=== PATIENT | male | born 2000 | race Caucasian/White ===

== ENCOUNTER 2020-05-07 21:26 | Observation (INO) | payer OTHER ==
[~2020-05-07] VITALS: Ht 170.2 cm; Wt 68.1 kg
[2020-05-07] MEDS ORDERED: BACT800T5 PO ×2 (21:38→23:57)
[2020-05-07] MEDS ORDERED: KETOROLAC 60MG 2ML VIAL IM ONE (22:30)
[2020-05-07] MEDS ORDERED: NS 1,000 ML IV ONE (22:45)
[2020-05-07] MEDS ORDERED: KETOROLAC 30 MG/ML 1ML VIAL IV ONE (22:45)
[2020-05-07] MEDS ORDERED: PIPERACILLIN/TAZOBACTAM SOD 4.5 GM in D5W MINI-BAG PLUS 50 ML IV ONE (22:45)
[2020-05-07 23:03] LABS: BASO % 0.5 % (0.0-1.0); EOS # 0.1 10^3/uL (0.0-0.5); EOS % 0.8 % (0.0-3.0); HEMATOCRIT 43.5 % (42.0-52.0); HEMOGLOBIN 14.3 g/dl (13.5-17.5); LYMPH % 11.6 % (24.0-44.0); MEAN CORPUSCULAR HEMOGLOBIN 30.2 pg (27.0-33.0); MEAN CORPUSCULAR HGB CONC 32.9 g/dl (32.0-36.5); MONO # 0.8 10^3/uL (0.0-0.8); MONO % 9.3 % (0.0-5.0); NEUTROPHILS # 6.6 10^3/uL (1.5-8.5); NEUTROPHILS % 77.2 % (36.0-66.0); PLATELET COUNT, AUTOMATED 235 10^3/uL (150-450); RED BLOOD COUNT 4.73 10^6/uL (4.30-6.10); WHITE BLOOD COUNT 8.6 10^3/uL (4.0-10.0)
--- NOTE | 2020-05-07 23:53 | REPVR ---
PROCEDURE INFORMATION: Exam: CT Right Lower Extremity Without Contrast; Thigh Exam date and time: 05/07/2020 10:44 PM Age: 19 years old Clinical indication: Edema; Yes, it is localized; Prior surgery; Surgery date: Post-operative (0-2 days); Surgery type: I & d upper right thigh for ingrownhair; Additional info: Possible abscess TECHNIQUE: Imaging protocol: CT of the Right lower extremity without contrast was performed. Exam focused on the thigh. Axial, coronal and sagittal reformatted images were created and reviewed. Radiation optimization: All CT scans at this facility use at least one of these dose optimization techniques: automated exposure control; mA and/or kV adjustment per patient size (includes targeted exams where dose is matched to clinical indication); or iterative reconstruction. COMPARISON: No relevant prior studies available. FINDINGS: Bones/joints: No CT evidence of acute fracture or dislocation. Alignment anatomic. Hip joint space preserved. No erosive or destructive changes. No lytic or blastic lesion. No significant effusion. Soft tissues: Mild subcutaneous edema along the anteromedial aspect of the proximal to mid thigh. Small soft tissue defect overlying the anteromedial aspect of the mid quadriceps musculature. Deep intramuscular fat planes grossly clear. No convincing organized collection or soft tissue gas. No soft tissue mass. IMPRESSION: 1. Limited noncontrast examination. 2. Mild subcutaneous edema along the anteromedial aspect of the proximal to mid thigh, compatible with cellulitis. No convincing organized collection to suggest abscess. 3. Additional findings, as above. Electronically signed by: Ever Cornejo On 05/07/2020 23:53:45 PM
[2020-05-07] MEDS ORDERED: IBUP-1720 PO (23:54)
[2020-05-07] MEDS ORDERED: OMEP1CAP73 PO (23:54)
[2020-05-08] MEDS ORDERED: VANCOMYCIN HCL 1,000 MG in IV FLUID PLACE HOLDER 1 EA IV SCH (00:15)
[2020-05-08] MEDS ORDERED: ONDANSETRON 4MG/2ML VIAL IV PRN (00:30)
[2020-05-08] MEDS ORDERED: KETOROLAC 30 MG/ML 1ML VIAL IV PRN (00:30)
--- NOTE | 2020-05-08 01:39 | HPEPDOC ---
[facility] Medical History & Physical Date of Admission May 08, 2020 Date of Service: May 08, 2020 Attending Physician: WILBER CAMARGO MD History and Physical CHIEF COMPLAINT: Right leg redness HISTORY OF PRESENT ILLNESS: Patient is a 19-year-old active male with no severe past medical history presented to the [facility] emergency department with complaint of increasing redness in his right leg. Patient states that earlier in the week he had developed an area on his right thigh that looks like an infected hair follicle. He stated that he continued with physical training and noticed that the area worsened and developed an abscess. He was seen by [facility] medical staff today and had an I&D of the abscess. He stated that he was told there is purulence. He was given Bactrim. He states that he took 1 pill of Bactrim. However, throughout the day the redness increased and spread down his thigh and onto his leg. Currently he states that his leg is warm and tender. He denies any fevers or chills. In the emergency department the patient was vitally stable. He was afebrile. White blood cell count was not elevated. He was not tachycardic. His ear. The right extremity was taken was demonstrate a mild CPK is edema along the anterior medial aspect of the proximal to mid thigh consistent with cellulitis but no areas of collection or abscess were identified. Patient was given a dose of Zosyn in the ED. Hospitalist service was consulted and the patient was admitted for further evaluation management PAST MEDICAL HISTORY: 1., GERD PAST SURGICAL HISTORY: 1. , Tonsillectomy SOCIAL HISTORY: Patient is a active male. [place] States that he uses dip denies smoking or bleeding. Denies IV or illicit drug use. Admits to occasional alcohol use FAMILY HISTORY: Patient states his mother, father are alive and well. He denies any known medical history. ALLERGIES: Please see below. REVIEW OF SYSTEMS: CONSTITUTIONAL: Denies fevers, chills. Denies unintentional weight loss, weight gain. Denies night sweats HEENT: Denies change in vision, headache. Denies dysphagia, odynophagia. CARDIOVASCULAR: Denies chest pain, palpitations or feelings of the heart racing. RESPIRATORY: Shortness of breath. denies cough or wheezing GASTROINTESTINAL: Denies abdominal pain. Denies nausea, vomiting, diarrhea or constipation.. GENITOURINARY: Denies dysuria, increased frequency. SKIN:. Admits to a right leg abscess that was drained. Admits to redness that has spread from his medial thigh to his leg. MUSCULOSKELETAL: Denies any muscle weakness or pain. NEUROLOGICAL:. Denies any changes in gait or speech from baseline. PSYCHIATRIC:. Denies any depression or anxiety. ENDOCRINE:. Denies heat intolerance or cold intolerance. Denies history of diabetes. HEMATOLOGIC/LYMPHATIC:. Denies easy bruising or bleeding. denies history of DVT or pulmonary embolism.. HOME MEDICATIONS: Please see below. PHYSICAL EXAMINATION: VITAL SIGNS: Temperature 98.7, pulse 75, respiratory rate 18, blood pressure 118/55, pulse oximetry, 98 % on room air. GENERAL APPEARANCE: Patient is awake, alert, oriented. He does not appear to be in acute distress. He is lying in stretcher comfortably. HEENT: Atraumatic normocephalic. Eyes are nonicteric. Trachea is midline. Mucous membranes are pink and moist. CARDIOVASCULAR:. Normal S1, S2, regular rate and rhythm. No clicks rubs or murmurs. LUNGS:. Clear vesicular breath sounds bilaterally. Good respiratory effort. No wheezes rhonchi or rales. ABDOMEN:. Soft nondistended, nontender. Normoactive bowel sounds throughout. EXTREMITIES: No edema. There is an area of induration on the patient's right anterior medial thigh there is a small incision over the indurated area with some draining purulence. There is surrounding erythema extending from the anterior medial thigh down the posterior leg on the right. There is no edema in the lower extremities. Are full equal pulses bilaterally NEUROLOGICAL:. No focal neurological deficits. PSYCHIATRIC:. Mood and affect appear appropriate LABORATORY DATA: See below. IMAGING: PROCEDURE INFORMATION: Exam: CT Right Lower Extremity Without Contrast; Thigh Exam date and time: 05/07/2020 10:44 PM Age: 19 years old Clinical indication: Edema; Yes, it is localized; Prior surgery; Surgery date: Post-operative (0-2 days); Surgery type: I & d upper right thigh for ingrownhair; Additional info: Possible abscess TECHNIQUE: Imaging protocol: CT of the Right lower extremity without contrast was performed. Exam focused on the thigh. Axial, coronal and sagittal reformatted images were created and reviewed. Radiation optimization: All CT scans at this facility use at least one of these dose optimization techniques: automated exposure control; mA and/or kV adjustment per patient size (includes targeted exams where dose is matched to clinical indication); or iterative reconstruction. COMPARISON: No relevant prior studies available. FINDINGS: Bones/joints: No CT evidence of acute fracture or dislocation. Alignment anatomic. Hip joint space preserved. No erosive or destructive changes. No lytic or blastic lesion. No significant effusion. Soft tissues: Mild subcutaneous edema along the anteromedial aspect of the proximal to mid thigh. Small soft tissue defect overlying the anteromedial aspect of the mid quadriceps musculature. Deep intramuscular fat planes grossly clear. No convincing organized collection or soft tissue gas. No soft tissue mass. IMPRESSION: 1. Limited noncontrast examination. 2. Mild subcutaneous edema along the anteromedial aspect of the proximal to mid thigh, compatible with cellulitis. No convincing organized collection to suggest abscess. 3. Additional findings, as above. Electronically signed by: Ever Cornejo On 05/07/2020 23:53:45 PM MICROBIOLOGY: Please see below. ASSESSMENT: Patient is a 19-year-old active male who presented to the [facility] emergency department for worsening cellulitis after having an incision and drainage on [facility]. PLAN: 1. Right Leg Furuncle/Cellulitis. -Patient has a superficial cellulitis of the right thigh. Likely secondary to a furuncle that formed. He stated he had an inflamed hair follicle and continued with physical training which likely caused the infection to worsen and result in abscess formation. He had this drained through [facility]. He actually only took 1 dose of Bactrim before he presented to the emergency department and therefore does not technically fail outpatient therapy. -CRP elevated . Will trend as currently necessary. [facility] and Zosyn. Will obtain MRSA screen. Cultures were taken at [facility]. If patient's MRSA screen is negative. Can de- escalate from vancomycin. CT imaging did not demonstrate any collection or abscess. -Plan to continue IV vancomycin and Zosyn today. Patient to be reevaluated in the morning. He can likely be discharged on oral antibiotics such as doxycycline for Keflex -Will give Toradol for pain 2. . Gastroesophageal reflux disease -Continue home Prilosec 3. DVT prophylaxis -Lovenox 40 mg daily Vital Signs Vital Signs Date Time Temp Pulse Resp B/P (MAP) Pulse Ox O2 Delivery O2 Flow Rate FiO2 05/07/20 23:48 98.7 75 18 118/55 (76) 98 Room Air Laboratory Data Labs 24H Laboratory Tests 2 05/07/20 22:53: Immature Granulocyte % (Auto) 0.6, Neutrophils (%) (Auto) 77.2H, Lymphocytes (%) (Auto) 11.6L, Monocytes (%) (Auto) 9.3H, Eosinophils (%) (Auto) 0.8, Basophils (%) (Auto) 0.5, Neutrophils # (Auto) 6.6, Lymphocytes # (Auto) 1.0L, Monocytes # (Auto) 0.8, Eosinophils # (Auto) 0.1, Basophils # (Auto) 0.0, Nucleated Red Blood Cells % (auto) 0.0, Lactic Acid Level 0.7, C-Reactive Protein, Quantitative 5.13H CBC/BMP Laboratory Tests 05/07/20 22:53 Microbiology Microbiology 05/07/20 Blood Culture, Received Pending 05/07/20 Blood Culture, Received Pending Home Medications Scheduled Omeprazole (Omeprazole) 20 Mg Capsule.dr, 20 MG PO DAILY Sulfamethoxazole/Trimethoprim (Bactrim Ds Tablet) 1 Each Tablet, 1 TAB PO BID STARTED 05/07/20: PATIENT ONLY TOOK ONE DOSE. Scheduled PRN Ibuprofen (Ibuprofen) 200 Mg Tablet, 400 MG PO Q6H PRN for PAIN Allergies Coded Allergies: No Known Allergies (Unverified , 05/07/20) ATTENDING NOTE I have personally evaluated and examined the patient. Discussed with resident/student regarding plan of care and agree with the above assessment and plan. A-FIB/CHADSVASC A-FIB History Current/History of A-Fib/PAF?: No MARTIN HUERTA DO May 08, 2020 01:39 WILBER CAMARGO MD May 08, 2020 06:59
[2020-05-08] MEDS ORDERED: VANCOMYCIN HCL 750 MG, VIAL MATE ADAPTER 1 EACH in D5W 250 ML IV ONE ×2 (02:00→03:00)
[2020-05-08 02:09] LABS: RSV AMPLIFICATION NEGATIVE (NEGATIVE)
--- OUTSIDE RECORDS SUMMARY | 2020-05-08 02:09 | CCD ---
Author Author [facility] Address Unknown Phone Unavailable Support Name Relationship Address Phone [facility] Next Of Kin [address] [place] [address] Unavailable LIAM JOHN Next Of Kin [address] [place], [place] [id number] Re-disclosure Warning The records that you are about to access may contain information from federally-assisted alcohol or drug abuse programs. If such information is present, then the following federally mandated warning applies: This information has been disclosed to you from records protected by federal confidentiality rules (42 CFR part 2). The federal rules prohibit you from making any further disclosure of this information unless further disclosure is expressly permitted by the written consent of the person to whom it pertains or as otherwise permitted by 42 CFR part 2. A general authorization for the release of medical or other information is NOT sufficient for this purpose. The Federal rules restrict any use of the information to criminally investigate or prosecute any alcohol or drug abuse patient.The records that you are about to access may contain highly sensitive health information, the redisclosure of which is protected by Article 27-F of the [facility] Public Health law. If you continue you may have access to information: Regarding HIV / AIDS; Provided by facilities licensed or operated by the [facility] Office of Mental Health; or Provided by the [facility] Office for People With Developmental Disabilities. If such information is present, then the following [facility] mandated warning applies: This information has been disclosed to you from confidential records which are protected by state law. State law prohibits you from making any further disclosure of this information without the specific written consent of the person to whom it pertains, or as otherwise permitted by law. Any unauthorized further disclosure in violation of state law may result in a fine or assisted sentence or both. A general authorization for the release of medical or other information is NOT sufficient authorization for further disc losure. Insurance Providers Payer name Policy type / Coverage type Policy ID Covered green party ID Covered green party's relationship to gomez Policy Gomez Plan Information [facility] [employer] [id number]
[2020-05-08] MEDS: PIPERACILLIN/TAZOBACTAM SOD 3.375 GM in D5W MINI-BAG PLUS 50 ML IV SCH ×4 (05:14→23:09)
[2020-05-08 06:00] LABS: BLOOD UREA NITROGEN 10 MG/DL (7-18); CALCIUM LEVEL 8.1 MG/DL (8.5-10.1); CARBON DIOXIDE LEVEL 29 MEQ/L (21-32); CHLORIDE LEVEL 105 MEQ/L (98-107); CREATININE FOR GFR 1.52 MG/DL (0.70-1.30); GLUCOSE, FASTING 107 MG/DL (70-100); POTASSIUM SERUM 3.9 MEQ/L (3.5-5.1); SODIUM LEVEL 139 MEQ/L (136-145)
[2020-05-08] MEDS ORDERED: NS 1,000 ML IV ONE (08:30)
[2020-05-08] MEDS: ENOXAPARIN 40MG/0.4ML SYRINGE (J1650 PER 10MG) SC SCH (09:12)
[2020-05-08] MEDS: OMEPRAZOLE 20 MG CAP PO SCH (09:12)
[2020-05-08] MEDS: ACETAMINOPHEN TAB 650MG DOSE (2X325MG) PO PRN ×2 (09:47→18:48)
[2020-05-08 13:30] VITALS: BP 115/67
[2020-05-08] MEDS: VANCOMYCIN HCL 750 MG, VIAL MATE ADAPTER 1 EACH in D5W 250 ML IV SCH (14:01)
[2020-05-08 14:32] LABS: BLOOD UREA NITROGEN 10 MG/DL (7-18); CARBON DIOXIDE LEVEL 27 MEQ/L (21-32); CHLORIDE LEVEL 111 MEQ/L (98-107); GLUCOSE, FASTING 89 MG/DL (70-100); POTASSIUM SERUM 4.3 MEQ/L (3.5-5.1); SODIUM LEVEL 144 MEQ/L (136-145)
[2020-05-08] MEDS: VANCOMYCIN HCL 500 MG in D5W MINI-BAG PLUS 100 ML IV SCH (15:10)
[2020-05-08 22:00] VITALS: BP 125/70
[2020-05-09] MEDS: ACETAMINOPHEN TAB 650MG DOSE (2X325MG) PO PRN ×2 (00:23→05:18)
[2020-05-09] MEDS: VANCOMYCIN HCL 750 MG, VIAL MATE ADAPTER 1 EACH in D5W 250 ML IV SCH (00:24)
[2020-05-09] MEDS: VANCOMYCIN HCL 500 MG in D5W MINI-BAG PLUS 100 ML IV SCH (01:34)
[2020-05-09] MEDS: PIPERACILLIN/TAZOBACTAM SOD 3.375 GM in D5W MINI-BAG PLUS 50 ML IV SCH (05:17)
[2020-05-09 06:00] VITALS: BP 102/56
[2020-05-09 06:33] LABS: HEMATOCRIT 37.8 % (42.0-52.0); MEAN CORPUSCULAR HEMOGLOBIN 30.1 pg (27.0-33.0); MEAN CORPUSCULAR HGB CONC 32.5 g/dl (32.0-36.5); MEAN CORPUSCULAR VOLUME 92.6 fl (80.0-96.0); PLATELET COUNT, AUTOMATED 187 10^3/uL (150-450); RED BLOOD COUNT 4.08 10^6/uL (4.30-6.10); WHITE BLOOD COUNT 4.6 10^3/uL (4.0-10.0)
[2020-05-09 06:40] LABS: HEMOGLOBIN 12.3 g/dl (13.5-17.5)
[2020-05-09 06:55] LABS: BLOOD UREA NITROGEN 6 MG/DL (7-18); CALCIUM LEVEL 8.4 MG/DL (8.5-10.1); CARBON DIOXIDE LEVEL 25 MEQ/L (21-32); CHLORIDE LEVEL 111 MEQ/L (98-107); GLUCOSE, FASTING 95 MG/DL (70-100); SODIUM LEVEL 141 MEQ/L (136-145)
[2020-05-09] MEDS: OMEPRAZOLE 20 MG CAP PO SCH (09:21)
[2020-05-09] MEDS: ENOXAPARIN 40MG/0.4ML SYRINGE (J1650 PER 10MG) SC SCH (09:22)
[2020-05-09] MEDS ORDERED: NS 1,000 ML IV ONE (09:30)
[2020-05-09] MEDS ORDERED: KETOROLAC 30 MG/ML 1ML VIAL IV ONE (09:30)
[2020-05-09] MEDS ORDERED: NORCO, ANEXSIA 5/325MG TABLET (HYDROcodone/ACETAMINOPHEN) PO PRN (09:30)
[2020-05-09] MEDS ORDERED: MORPHINE 4 MG/ML 1ML VIAL/SYRINGE (J2270) IV ONE (09:30)
[2020-05-09] MEDS: ceFAZolin SOD 2 GM in IV 1 EA IV SCH ×2 (10:19→17:05)
--- NOTE | 2020-05-09 11:11 | IPNPDOC ---
Date Seen The patient was seen on 05/09/20. Progress Note SUBJECTIVE: MAXIMUM TEMPERATURE of 100.9. No complaints of chills, 7/10 pain in the right anterior thigh, worse with movement OBJECTIVE PHYSICAL EXAMINATION: VITAL SIGNS: Please see below. GENERAL APPEARANCE: No distress, regular, oriented 3 HEENT: Moist mucous membranes. No cervical lymphadenopathy, thyromegaly CARDIOVASCULAR:. Normal S1, S2, regular rate and rhythm. LUNGS:. Here entry is equal bilaterally. Clear to auscultation No wheezes rhonchi or rales. ABDOMEN:. Soft nondistended, nontender. Normoactive bowel sounds throughout. EXTREMITIES: No edema. 1-1/2 cm indurated area of erythema and serosanguineous drainage in the right anterior medial thigh t NEUROLOGICAL:. No focal neurological deficits. PSYCHIATRIC:. Mood and affect appear appropriate LABORATORY DATA, IMAGING STUDIES, MICROBIOLOGY: Please see below. 05/08/20 CT right LE: Exam: CT Right Lower Extremity Without Contrast; Thigh Exam date and time: 05/07/2020 10:44 PM Age: 19 years old Clinical indication: Edema; Yes, it is localized; Prior surgery; Surgery date: Post-operative (0-2 days); Surgery type: I & d upper right thigh for ingrownhair; Additional info: Possible abscess TECHNIQUE: Imaging protocol: CT of the Right lower extremity without contrast was performed. Exam focused on the thigh. Axial, coronal and sagittal reformatted images were created and reviewed. Radiation optimization: All CT scans at this facility use at least one of these dose optimization techniques: automated exposure control; mA and/or kV adjustment per patient size (includes targeted exams where dose is matched to clinical indication); or iterative reconstruction. COMPARISON: No relevant prior studies available. FINDINGS: Bones/joints: No CT evidence of acute fracture or dislocation. Alignment anatomic. Hip joint space preserved. No erosive or destructive changes. No lytic or blastic lesion. No significant effusion. Soft tissues: Mild subcutaneous edema along the anteromedial aspect of the proximal to mid thigh. Small soft tissue defect overlying the anteromedial aspect of the mid quadriceps musculature. Deep intramuscular fat planes grossly clear. No convincing organized collection or soft tissue gas. No soft tissue mass. IMPRESSION: 1. Limited noncontrast examination. 2. Mild subcutaneous edema along the anteromedial aspect of the proximal to mid thigh, compatible with cellulitis. No convincing organized collection to suggest abscess. 3. Additional findings, as above. Electronically signed by: Ever Cornejo On 05/07/2020 23:53:45 PM ASSESSMENT AND PLAN: 19-year-old male with history of gastroesophageal reflux disease, presented to the emergency room after an open skin lesion was noted with increasing erythema, purulent drainage, admitted for right anterior thigh ab scess, cellulitis. Light anterior thigh abscess/right lower extremity cellulitis -Patient had been started empirically on IV vancomycin and Zosyn on 05/08/2020 -He remains with a temperature 100.9 overnight -MRSA is negative -On IV cefazolin 2 g every 8 hourly -Pain control with IV morphine, and [place] as needed -wound culture pending Acute kidney injury -Resolved with 2 L IV fluid hydration yesterday -Continue IV fluids and 1 dose of Toradol this morning for pain control , Gastroesophageal reflux disease -No acute complaints Disposition: Awaiting insurance approval for Dalvance discharge home if approved with dalvance 1.5 g IV infusion at the infusion unit if dc home today. VS, I&O, 24H, [facility] Vital Signs/I&O Vital Signs Date Time Temp Pulse Resp B/P (MAP) Pulse Ox O2 Delivery O2 Flow Rate FiO2 05/09/20 10:07 19 05/09/20 06:00 97.9 86 102/56 (71) 100 Room Air I&O- Last 24 Hours up to 6 AM0 05/09/20 06:00 Intake Total 2850 ml Output Total 0 ml Balance 2850 ml Laboratory Data 24H LABS Laboratory Tests 2 05/08/20 13:38: Anion Gap 6L, Calcium Level 8.0L 05/09/20 06:16: Anion Gap 5L, Calcium Level 8.4L, Nucleated Red Blood Cells % (auto) 0.0 CBC/BMP Laboratory Tests 05/08/20 13:38 05/09/20 06:16 Microbiology Microbiology 05/09/20 Gram Stain, Received Pending 05/09/20 Wound Culture, Received Pending 05/07/20 Blood Culture - Preliminary, Resulted No growth after 24 hours . All specim... 05/07/20 Blood Culture - Preliminary, Resulted No growth after 24 hours . All specim... REYES HU MD May 09, 2020 11:11
[2020-05-09] MEDS ORDERED: DALV1SOL IV (11:14)
[2020-05-09] MEDS ORDERED: ACET-897 PO (11:16)
[2020-05-09 14:00] VITALS: BP 110/66
[2020-05-09] MEDS ORDERED: diphenhydrAMINE 25MG CAP PO ONE (18:45)
[2020-05-09] MEDS ORDERED: MONTELUKAST 10 MG TAB PO ONE (18:45)
[2020-05-09] MEDS ORDERED: ALBUTEROL SULFATE 2.5 MG/0.5 ML INH NEB SOLN NEB ONE (18:45)
[2020-05-09] MEDS ORDERED: methylPREDNISolone 125MG 2ML VIAL IV ONE (18:45)
[2020-05-09 20:00] VITALS: BP 103/55
[2020-05-09] MEDS: TRIAMCINOLONE ACET 0.1% OINTMENT 80 GM TOP SCH (20:07)
[2020-05-09] MEDS ORDERED: LINEZOLID 600MG TABLET (ZYVOX) PO ONE (21:00)
[2020-05-10] MEDS: hydrOXYzine 25 MG TAB PO SCH ×2 (00:11→06:17)
[2020-05-10 05:59] LABS: HEMOGLOBIN 13.6 g/dl (13.5-17.5); MEAN CORPUSCULAR HEMOGLOBIN 30.6 pg (27.0-33.0); MEAN CORPUSCULAR HGB CONC 33.2 g/dl (32.0-36.5); MEAN CORPUSCULAR VOLUME 92.3 fl (80.0-96.0); PLATELET COUNT, AUTOMATED 247 10^3/uL (150-450); RED BLOOD COUNT 4.44 10^6/uL (4.30-6.10); WHITE BLOOD COUNT 5.3 10^3/uL (4.0-10.0)
[2020-05-10 06:00] VITALS: BP 134/60
[2020-05-10 06:21] LABS: BLOOD UREA NITROGEN 7 MG/DL (7-18); CALCIUM LEVEL 8.6 MG/DL (8.5-10.1); CARBON DIOXIDE LEVEL 28 MEQ/L (21-32); CHLORIDE LEVEL 107 MEQ/L (98-107); CREATININE FOR GFR 1.21 MG/DL (0.70-1.30); GLUCOSE, FASTING 234 MG/DL (70-100); POTASSIUM SERUM 4.7 MEQ/L (3.5-5.1); SODIUM LEVEL 140 MEQ/L (136-145)
[2020-05-10] MEDS ORDERED: methylPREDNISolone 125MG 2ML VIAL IV SCH (07:00)
[2020-05-10] MEDS ORDERED: TRIA1OI80 TOP (07:12)
[2020-05-10] MEDS ORDERED: BENA25CA4 PO (07:12)
[2020-05-10] MEDS ORDERED: methylPREDNISolone 125MG 2ML VIAL IV ONE (07:15)
[2020-05-10] MEDS ORDERED: ALBUTEROL SULFATE 2.5 MG/0.5 ML INH NEB SOLN NEB SCH (08:00)
[2020-05-10] MEDS: OMEPRAZOLE 20 MG CAP PO SCH (08:05)
[2020-05-10] MEDS: TRIAMCINOLONE ACET 0.1% OINTMENT 80 GM TOP SCH (08:06)
[2020-05-10] MEDS: ENOXAPARIN 40MG/0.4ML SYRINGE (J1650 PER 10MG) SC SCH (08:06)
[2020-05-10] MEDS: ACETAMINOPHEN TAB 650MG DOSE (2X325MG) PO PRN (08:14)
--- NOTE | 2020-05-10 09:55 | DS.PDOC ---
Discharge Summary General Date of Admission May 07, 2020 at 21:27 Date of Discharge 05/10/20 Discharge Summary DISCHARGE DIAGNOSES: Right thigh abscess Right LE cellulitis Cefazolin-induced Drug Rash Acute Kidney Injury GERD DISCHARGE MEDICATIONS:see below ALLERGY: cefazolin-rash DISCHARGE INSTRUCTIONS: IV dalvance 1.5 grams at infusion unit on 05/10/20 complete rapid tapered dose of steroids, triamcinolone prn, and atarax for drug rash. PCP fu within 5 days HOSPITAL COURSE: 19-year-old male with history of gastroesophageal reflux disease, presented to the emergency room after an open skin lesion was noted with increasing erythema, purulent drainage, admitted for right anterior thigh abscess, cellulitis. right anterior thigh abscess/right lower extremity cellulitis -Patient had been started empirically on IV vancomycin and Zosyn on 05/08/2020- 05/09/20 -05/08/20 maximum temperature 100.9 overnight -MRSA is negative, vanco discontinued on 05/09/20 -given IV cefazolin 2 g every 8 hourly on 05/09/20 and developed maculopapular generalized erythematous rash, and subsequently discontinued. -Pain controlled with IV morphine, and [place] as needed -wound culture pending -blood cx negative Acute kidney injury -Resolved with 2 L IV fluid hydration yesterday Cefazolin-induced Drug Rash -allergy profile updated -pt had resolution of rash after solumedrol iv, atarax, triamcinolone -no angioedema or respiratory distress -continue rapid taper of steroids, prn atarax and triamcinolone. , Gastroesophageal reflux disease -No acute complaints Disposition: Awaiting insurance approval for Dalvance discharge home if approved with dalvance 1.5 g IV infusion at the infusion unit if dc home today. DISCHARGE PHYSICAL EXAMINATION: VITAL SIGNS: Please see below. GENERAL APPEARANCE: No distress, regular, oriented 3 HEENT: Moist mucous membranes. No cervical lymphadenopathy, thyromegaly CARDIOVASCULAR:. Normal S1, S2, regular rate and rhythm. LUNGS:. Here entry is equal bilaterally. Clear to auscultation No wheezes rhonchi or rales. ABDOMEN:. Soft nondistended, nontender. Normoactive bowel sounds throughout. EXTREMITIES: No edema. 1-1/2 cm indurated area of erythema and serosanguineous drainage in the right anterior medial thigh t NEUROLOGICAL:. No focal neurological deficits. PSYCHIATRIC:. Mood and affect appear appropriate SKIN: faint maculopapular erythematous rash on b/l forearm. DISCHARGE LABORATORY DATA, IMAGING STUDIES, MICROBIOLOGY: Please see below. 05/08/20 CT right LE: Exam: CT Right Lower Extremity Without Contrast; Thigh Exam date and time: 05/07/2020 10:44 PM Age: 19 years old Clinical indication: Edema; Yes, it is localized; Prior surgery; Surgery date: Post-operative (0-2 days); Surgery type: I & d upper right thigh for ingrownhair; Additional info: Possible abscess TECHNIQUE: Imaging protocol: CT of the Right lower extremity without contrast was performed. Exam focused on the thigh. Axial, coronal and sagittal reformatted images were created and reviewed. Radiation optimization: All CT scans at this facility use at least one of these dose optimization techniques: automated exposure control; mA and/or kV adjustment per patient size (includes targeted exams where dose is matched to clinical indication); or iterative reconstruction. COMPARISON: No relevant prior studies available. FINDINGS: Bones/joints: No CT evidence of acute fracture or dislocation. Alignment anatomic. Hip joint space preserved. No erosive or destructive changes. No lytic or blastic lesion. No significant effusion. Soft tissues: Mild subcutaneous edema along the anteromedial aspect of the proximal to mid thigh. Small soft tissue defect overlying the anteromedial aspect of the mid quadriceps musculature. Deep intramuscular fat planes grossly clear. No convincing organized collection or soft tissue gas. No soft tissue mass. IMPRESSION: 1. Limited noncontrast examination. 2. Mild subcutaneous edema along the anteromedial aspect of the proximal to mid thigh, compatible with cellulitis. No convincing organized collection to suggest abscess. 3. Additional findings, as above. Electronically signed by: Ever Cornejo On 05/07/2020 23:53:45 PM TIME SPENT ON DISCHARGE: 30 MIN. Vital Signs/I&Os Vital Signs Date Time Temp Pulse Resp B/P (MAP) Pulse Ox O2 Delivery O2 Flow Rate FiO2 05/10/20 06:00 98.2 60 16 134/60 (84) 98 Room Air I&O- Last 24 Hours up to 6 AM 05/10/20 05:59 Intake Total 2309 ml Balance 2309 ml Laboratory Data Labs 24H Laboratory Tests 2 05/10/20 05:48: Nucleated Red Blood Cells % (auto) 0.0, Anion Gap 5L, Calcium Level 8.6 CBC/BMP Laboratory Tests 05/10/20 05:48 Microbiology Microbiology 05/09/20 Gram Stain - Final, Resulted 05/09/20 Wound Culture - Preliminary, Resulted Staphylococcus Aureus 05/07/20 Blood Culture - Preliminary, Resulted No Growth after 48 hours. All Specime... 05/07/20 Blood Culture - Preliminary, Resulted No Growth after 48 hours. All Specime... Discharge Medications Scheduled Acetaminophen (Tylenol Extra Strength) 500 Mg Tablet, 500 MG PO q4hprn for pain Dalbavancin Hydrochloride (Dalvance) 500 Mg Vial, 1.5 G IV ONCE Omeprazole (Omeprazole) 20 Mg Capsule.dr, 20 MG PO DAILY, (Reported) Triamcinolone Acet (Triamcinolone Acetonide 0.1% Oint) 80 Gm Oint...g., 0 DOSE TOP BID Scheduled PRN Diphenhydramine HCl (Benadryl) 25 Mg Capsule, 25 MG PO Q4HP PRN for pruritus Allergies Coded Allergies: cefazolin (Verified Allergy, Mild, rash, 05/10/20) PATIENT HAD RECEIVED FIRST DOSE WITH NO ISSUE. PATIENT ALSO RECEIVED NORCO AT SAME TIME SECOND DOSE OF ANCEF. NORCO MAY HAVE CAUSED THE ALLERGY. REYES HU MD May 10, 2020 09:55
== END 2020-05-10 10:10 | disposition home or self-care (01) ==
LOC: M ED 21:26 → M ED INP 21:27 → M MS5PR 05-08 13:46
PROVIDERS: ADMIT Student in an Organized Health Care Education/Training Program; ATTEND General Practice
DX: L03.115 Cellulitis of right lower limb (principal); L02.415 Cutaneous abscess of right lower limb; A49.01 Methicillin susceptible Staphylococcus aureus infection, unspecified site; T36.1X5A Adverse effect of cephalosporins and other beta-lactam antibiotics, initial encounter; R21 Rash and other nonspecific skin eruption; N17.9 Acute kidney failure, unspecified; K21.9 Gastro-esophageal reflux disease without esophagitis; Z79.899 Other long term (current) drug therapy; Z88.1 Allergy status to other antibiotic agents
CPT/HCPCS: 36415; 73700; 80047; 80048; 83605; 85025; 85027; 86140; 87040; 87070; 87077; 87186; 87205; 87631; 87641; 94640; 96361; 96365; 96366; 96367; 96372; 96375; 96376; 99284; J0690; J1650; J1885; J2270; J2543; J2930; J3370

== ENCOUNTER 2020-05-10 14:36 | Outpatient (CLI) | payer OTHER ==
[~2020-05-10] VITALS: Ht 170.2 cm; Wt 68.1 kg
[~2020-05-10 14:36] MED LIST: ACET-897 PO; BACT800T5 PO; BENA25CA4 PO; DALV1SOL IV; IBUP-1720 PO; OMEP1CAP73 PO; TRIA1OI80 TOP
[2020-05-10 14:51] VITALS: BP 137/63
[2020-05-10] MEDS ORDERED: DALBAVANCIN 1,500 MG in D5W 250 ML IV ONE (15:00)
[2020-05-10 16:02] VITALS: BP 118/57
[2020-05-10 16:30] VITALS: BP 131/74
== END 2020-05-10 16:30 | disposition home or self-care (01) ==
LOC: M INFU 14:36
PROVIDERS: ATTEND General Practice
DX: L03.116 Cellulitis of left lower limb (principal); Z88.8 Allergy status to other drugs, medicaments and biological substances
CPT/HCPCS: 96365; J0875

== ENCOUNTER 2022-07-08 19:22 | Emergency (ER) | payer OTHER ==
[~2022-07-08] VITALS: Ht 170.2 cm; Wt 61.3 kg
[2022-07-08] MEDS ORDERED: [UNRECOGNIZED DRUG - CODE] PO (19:29)
[2022-07-08] MEDS ORDERED: PEPT262C2 PO (19:29)
[2022-07-08 20:27] LABS: BASO % 0.6 % (0.0-1.0); EOS % 0.9 % (0.0-3.0); HEMATOCRIT 43.9 % (42.0-52.0); HEMOGLOBIN 15.2 g/dl (13.5-17.5); LYMPH # 0.8 10^3/uL (1.5-5.0); LYMPH % 24.1 % (24.0-44.0); MEAN CORPUSCULAR HEMOGLOBIN 30.4 pg (27.0-33.0); MEAN CORPUSCULAR HGB CONC 34.6 g/dl (32.0-36.5); MEAN CORPUSCULAR VOLUME 87.8 fl (80.0-96.0); MONO # 0.3 10^3/uL (0.0-0.8); MONO % 9.1 % (2.0-8.0); NEUTROPHILS # 2.1 10^3/uL (1.5-8.5); PLATELET COUNT, AUTOMATED 204 10^3/uL (150-450); WHITE BLOOD COUNT 3.3 10^3/uL (4.0-10.0)
[2022-07-08 21:39] LABS: BLOOD UREA NITROGEN 10 MG/DL (9-23); CALCIUM LEVEL 8.7 MG/DL (8.5-10.1); CARBON DIOXIDE LEVEL 28 MMOL/L (20-31); CHLORIDE LEVEL 105 MMOL/L (98-107); CREATININE FOR GFR 1.03 MG/DL (0.70-1.30); GLOMERULAR FILTRATION RATE > 60.0 (>60); GLUCOSE, FASTING 90 MG/DL (60-100); POTASSIUM SERUM 3.9 MMOL/L (3.5-5.1); SODIUM LEVEL 140 MMOL/L (136-145)
[2022-07-08] MEDS ORDERED: ISOVUE-370 76% 100ML VIAL As Ordered ONE (23:23)
[2022-07-08] MEDS ORDERED: SUCRALFATE 1 GM TAB PO ONE (23:25)
[2022-07-08] MEDS ORDERED: PANTOPRAZOLE 40MG VIAL IV ONE (23:25)
[2022-07-08] MEDS ORDERED: GI COCKTAIL 50ML BTL(HYOSCYAMINE/MAALOX/LIDOCAINE VISCOUS)(1:3:1) PO ONE (23:25)
[2022-07-08] MEDS ORDERED: NS 1,000 ML IV ONE (23:25)
[2022-07-09 00:29] VITALS: BP 125/70
[2022-07-09] MEDS ORDERED: DICY10CA13 PO (01:06)
== END 2022-07-09 01:22 | disposition home or self-care (01) ==
LOC: M ED 19:22
DX: A08.0 Rotaviral enteritis (principal); K21.9 Gastro-esophageal reflux disease without esophagitis; F17.200 Nicotine dependence, unspecified, uncomplicated
CPT/HCPCS: 74177; 80048; 83605; 85025; 86850; 86900; 86901; 87507; 96374; 99284; C9113; Q9967